=== PATIENT | female | born 1980 | race Caucasian/White ===

== ENCOUNTER 2020-03-05 08:53 | Outpatient (CLI) | payer OTHER, SELFPAY ==
--- NOTE | ~2020-03-05 | MM_ITS ---
EXAMINATION: MM screening [facility] w ricki HISTORY: Screening mammogram TECHNIQUE: Craniocaudal and mediolateral oblique 3-D tomosynthesis images were obtained and synthetic 2-D images were generated. CAD analysis was submitted and interpreted. COMPARISON: Comparison to multiple prior studies sequentially, with oldest reviewed study dated 02/24. BREAST PARENCHYMAL COMPOSITION: The breasts are heterogeneously dense, which may obscure small masses . FINDINGS: There is no evidence of suspicious mass, calcification, or architectural distortion to sugg est malignancy in either breast. There has been no suspicious interval change. IMPRESSION: 1. No mammographic evidence of malignancy. 2. Recommend routine screening mammography in one year. BI-RADS Category 1: Negative Reviewed, dictated and finalized at location A.
== END 2020-03-05 08:54 | disposition home or self-care (01) ==
LOC: ANHIMG 08:55
PROVIDERS: PCP Internal Medicine; Visit Provider Nurse Practitioner
DX: Z12.31 Encounter for screening mammogram for malignant neoplasm of breast (principal)
CPT/HCPCS: 77063; 77067

== ENCOUNTER 2021-03-05 10:09 | Outpatient (CLI) | payer OTHER, SELFPAY ==
--- NOTE | ~2021-03-05 | MM_ITS ---
EXAMINATION: MM screening [facility] w r[facility] HISTORY: Screening TECHNIQUE: Craniocaudal and mediolateral oblique 3-D tomosynthesis images were obtained and synthetic 2-D images were generated. CAD analysis was submitted and interpreted. COMPARISON: Comparison to multiple prior studies sequentially, with oldest reviewed study dated 02/24. BREAST PARENCHYMAL COMPOSITION: The breasts are heterogeneously dense, which may obscure small masses . FINDINGS: There is no evidence of suspicious mass, calcification, or architectural distortion to sugg est malignancy in either breast. There has been no suspicious interval change. IMPRESSION: 1. No mammographic evidence of malignancy. 2. Recommend routine screening mammography in one year. BI-RADS Category 1: Negative Reviewed, dictated and finalized at location A.
== END 2021-03-05 10:10 | disposition home or self-care (01) ==
LOC: ANHIMG 10:12
PROVIDERS: PCP Internal Medicine; Visit Provider Nurse Practitioner
DX: Z12.31 Encounter for screening mammogram for malignant neoplasm of breast (principal)
CPT/HCPCS: 77063; 77067

== ENCOUNTER 2022-04-11 10:21 | Outpatient (CLI) | payer OTHER, SELFPAY ==
--- NOTE | ~2022-04-11 | MM_ITS ---
EXAMINATION: MM screening [facility] [place] BI w ricki HISTORY: Screening TECHNIQUE: Craniocaudal and mediolateral oblique 3-D tomosynthesis images were obtained and synthetic 2-D images were generated. CAD analysis was submitted and interpreted. COMPARISON: Comparison to multiple prior studies sequentially, with oldest reviewed study dated 11/2018. BREAST PARENCHYMAL COMPOSITION: There are scattered areas of fibroglandular density. FINDINGS: There is no evidence of suspicious mass, calcification, or architectural distortion to sugg est malignancy in either breast. There has been no suspicious interval change. IMPRESSION: 1. No mammographic evidence of malignancy. 2. Recommend routine screening mammography in one year. BI-RADS Category 1: Negative Reviewed, dictated and finalized at location A.
== END 2022-04-11 10:22 | disposition home or self-care (01) ==
LOC: ANHIMG 10:22
PROVIDERS: PCP Internal Medicine; Visit Provider Nurse Practitioner
DX: Z12.31 Encounter for screening mammogram for malignant neoplasm of breast (principal)
CPT/HCPCS: 77063; 77067

== ENCOUNTER 2022-12-02 03:00 | Emergency (ER) | payer OTHER, SELFPAY ==
[2022-12-02] VITALS (14 sets, daily range): BP systolic 114–138; BP diastolic 55–95; PULSE 79–202; RESP 10–19; TEMP 37.1; O2SAT 92–100
--- NOTE | ~2022-12-02 | CT_ITS ---
EXAMINATION: CT abdomen pelvis w con DATE: 12/02/2022 07:55 INDICATION: Abdominal pain. TECHNIQUE: Computed tomography (CT) of the abdomen and pelvis was performed with 100 mL Omnipaque 350 intravenous contrast. Automated exposure control and iterative reconstruction technique were employe d. The dose-length product was 540.09 mGy-cm. COMPARISON: CT abdomen and pelvis 10/13/10 FINDINGS: The visualized portions of the lung bases demonstrate mild atelectasis. No pleural effusion . The heart size is normal. No pericardial effusion. There is a small sliding hiatal hernia. The live r is normal. There are changes of cholecystectomy. The spleen, pancreas, adrenal glands, and left kid tatyana are normal. There is a delayed right-sided contrast nephrogram. There is a 5 mm stone in right ki dney. There is asymmetric edema around right kidney. There is mild right hydronephrosis and proximal hydroureter. There is a 4 mm stone in proximal right ureter. There are no dilated loops of bowel. The appendix is normal. There are no pathologically enlarged lymph nodes. There is no free intraperitone al fluid. There is moderate lumbar spondylosis. IMPRESSION: 1. 4 mm stone in proximal right ureter with mild right hydronephrosis and proximal hydroureter. 2. Nonobstructing 5 mm right kidney stone. Reviewed, dictated and finalized at location A. IMPRESSION: 1. 4 mm stone in proximal right ureter with mild right hydronephrosis and proxi mal hydroureter. 2. Nonobstructing 5 mm right kidney stone.
[2022-12-02 03:27] LABS: Basophils Absolute Auto 0.1 K/mm3 (0.0-0.1); Basophils Percent Auto 0.4 % (0.2-1.2); Eosinophils Percent Auto 0.1 % (0-4.4); Hematocrit 39.1 % (37.0-47.0); Hemoglobin 13.3 g/dL (12.0-15.0); Immature Granulocyte Absolute 0.02 K/mm3 (0.00-0.031); Immature Granulocyte Percent A 0.2 % (0-0.5); Lymphocytes Absolute Auto 1.05 K/mm3 (0.9-3.2); Lymphocytes Percent Auto 9.1 % (18.3-44.2); Mean Corpuscular Hemoglobin 30.4 pg (26-34); Mean Corpuscular Volume 89.3 fl (80-100); Mean Platelet Volume 10.7 fl (7.4-10.4); Monocytes Absolute Auto 0.5 K/mm3 (0.1-0.6); Monocytes Percent Auto 4.4 % (2.6-8.5); Neutrophils Absolute Auto 9.9 K/mm3 (1.3-6.7); Neutrophils Percent Auto 85.8 % (45.5-73.1); Platelet Count Result 303 k/mm3 (150-375); Red Blood Count 4.38 M/mm3 (4.2-5.4); Red Cell Distribution Width 13.2 % (11.5-14.5); White Blood Count 11.5 K/mm3 (4.5-10.0)
[2022-12-02 03:36] LABS: Alanine Aminotransferase 18 U/L (6-35); Albumin Level 4.6 g/dL (3.5-5.1); Alkaline Phosphatase 84 U/L (38-126); Anion Gap 11 mmol/L (8-16); Aspartate Amino Transferase 24 U/L (14-36); Bilirubin,Total 0.6 mg/dL (0.2-1.3); Blood Urea Nitrogen 12 mg/dL (7-17); Calcium 9.2 mg/dL (8.4-10.2); Carbon Dioxide 21 mmol/L (22-30); Chloride 106 mmol/L (98-107); Estimated Glomerular Filt Rate > 60; Glucose 171 mg/dL (65-110); Lipase 71 U/L (23-300); Potassium 3.9 mmol/L (3.4-5.0); Sodium 138 mmol/L (137-145)
[2022-12-02 04:04] LABS: Appearance Urine Cloudy (Clear); Bacteria Urine None Seen /hpf; Bilirubin Urine Negative (Negative); Blood Urine 3+ (Negative); Color Urine Yellow (Yellow); Glucose Urine UA Negative (Negative); Ketones Urine 2+ mg/dL (Negative); Leukocyte Esterase Ur Negative LEU/UL (Negative); Nitrate Urine Negative (Negative); Non Pathogenic Casts 0-2; Protein Urine 1+ mg/dL (Negative); RBC Urine >100 /hpf (0-2); Specific Grav Ur 1.019 (1.001-1.035); Squamous Epithelial Cell Urine Few /hpf (Few); Urobilinogen Urine 0.2 mg/dL (<2.0); WBC Urine 0-5 /hpf
[2022-12-02 04:13] LABS: Add Urine Microscopic? YES
--- NOTE | 2022-12-02 07:30 | ED.ABDPAIN ---
HPI - Abdominal Pain General Chief Complaint: Abdominal Pain Stated Complaint: Abdominal Pain Time Seen by Provider: 12/02/22 07:17 Source: patient and family Limitations: no limitations History of Present Illness HPI narrative: 42 years old white female presented to the ED with abdominal pain, radiating to right lower back. At 730 last night associated with a lot of vomiting and a lot of diarrhea. History of cholecystectomy, depression, allergy, endometriosis. Currently her main complaint is right abdominal pain. History of kidney stone. She denies any fever or chills or urinary symptoms. She denies aggravating or relieving factors. Related Data Allergies Allergy/AdvReac Type Severity Reaction Status Date / Time adhesive tape Allergy Severe PAPER Verified 12/02/22 06:05 TAPE= HIVES codeine AdvReac Mild Nausea Verified 12/02/22 07:34 oxycodone AdvReac Mild Hallucinati Verified 12/02/22 07:34 ng Sulfa (Sulfonamide AdvReac Mild Headache Verified 12/02/22 07:34 Antibiotics) Review of Systems Review of Systems: All systems reviewed & are unremarkable except as noted in HPI and below Exam Narrative: General appearance: Well-developed, well-nourished Skin: Normal color Head: Normocephalic, nontraumatic Eyes: Clear conjunctiva ENT: Oropharynx normal, ears normal, nose normal Neck: Supple, nontender Chest and respiratory: Airway patent, no respiratory distress, no accessory muscle use Heart: Regular rate/rhythm Abdomen: Soft, tenderness right flank and right lower abdomen, no organomegaly, quiet bowel sounds Vascular: Normal peripheral pulses, normal capillary refill. Musculoskeletal: Normal range of motion, nontender back Neurologic: Alert and oriented ?3, ZIPPER TRIMMER HAND is normal as tested, no gross motor deficit Course Reevaluation(s) Reevaluation #1: Feeling much better compared to on arrival after IV fluid and Dilaudid/Zofran IV. Date: 12/02/22 Time: 10:11 Vital Signs Vital signs: Vital Signs Temperature 37.1 C 12/02/22 03:02 Pulse Rate 99 12/02/22 03:02 Respiratory Rate 18 12/02/22 03:02 Blood Pressure 130/95 H 12/02/22 03:02 Pulse Oximetry 99 12/02/22 03:02 Temperature 37.1 C 12/02/22 03:02 Pulse Rate 85 12/02/22 10:02 Respiratory Rate 16 12/02/22 10:02 Blood Pressure 123/70 12/02/22 10:02 Pulse Oximetry 100 12/02/22 10:02 MDM - Abdominal Pain MDM Narrative Medical decision making narrative: Patient presents with right abdominal pain Differential diagnosis include urinary tract infection, kidney stone, diverticulitis, constipation. Work-up today showed white count of 11.5 with left shift, normal CMP, hematuria. CT abdomen and pelvis with contrast showed 4 mm stone at the proximal right ureter with mild right hydronephrosis and proximal hydroureter. Patient received 1 L of normal saline, 4 mg of Zofran, 0.5 mg of Dilaudid with good result. Patient preferred to go home to follow-up with urologist as outpatient. Discharge the pt was discharged to home.the pt,s condition upon discharge was fair,education was provided to the pt in reference to the final impression,discharge study results,treatment,prognosis and need for follow up . Differential Diagnosis Differential diagnosis: Likely abdominal pain, calculus of kidney, constipation, diverticulitis, gastroenteritis and small bowel obstruction Lab Data 12/02/22 03:18 12/02/22 03:18 Labs: Lab Results 12/02/22 12/02/22 12/02/22 Range/Units 03:18 03:18 03:29 WBC 11.5 H (4.5-10.0) K/mm3 RBC 4.38 (4.2-5.4) M/mm3 Hgb 13.3 (12.0-15.0) g/dL Hct 39.1 (37.0-47.0) % MCV 89.3 (80-100) fl M
--- NOTE | 2022-12-02 07:52 | PC.NURSE ---
Pt in ct
[2022-12-02] MEDS: ONDANSETRON INJ 4 MG/2 ML VIAL IV PUSH (08:00)
[2022-12-02] MEDS: SODIUM CHLORIDE 0.9% IV 2,000 ML 999 ML IV CONT (08:00)
[2022-12-02] MEDS: HYDROmorphone HCL INJ (*CRX) 1 MG/ML SYR 0.5 MG IV PUSH (08:07)
[2022-12-02] MEDS: TAMSULOSIN HCL 0.4 MG CAPSULE PO (10:55)
[2022-12-02] MEDS: KETOROLAC 30 MG/ML VIAL (*BKC) IV PUSH (11:11)
== END 2022-12-02 11:20 | disposition home or self-care (01) ==
PROVIDERS: Emergency Medicine; Emergency Provider Emergency Medicine; PCP Internal Medicine
DX: N13.2 Hydronephrosis with renal and ureteral calculous obstruction (principal); N80.9 Endometriosis, unspecified; F32.A Depression, unspecified
CPT/HCPCS: 36415; 74177; 80053; 81001; 81025; 83690; 85025; 96361; 96374; 96375; 99284; A9270; J1170; J1885; J2405; J7030; Q9967

== ENCOUNTER 2022-12-04 13:28 | Outpatient (CLI) | payer OTHER, SELFPAY ==
--- NOTE | ~2022-12-04 | XR_ITS ---
EXAMINATION: XR abdomen/kub 1V DATE: 12/04/2022 13:45 INDICATION: Right ureteral stone. TECHNIQUE: A supine view of the abdomen on 2 radiographs was obtained. COMPARISON: CT abdomen and pelvis 12/02/2022 FINDINGS: There are no dilated loops of bowel. There are phleboliths in the pelvis. There is a 5 mm s tone in right kidney. There is a 4 mm stone in proximal right ureter. Surgical clips in the right upp er quadrant are likely from cholecystectomy. IMPRESSION: 1. 4 mm stone in proximal right ureter. 2. 5 mm right kidney stone. Reviewed, dictated and finalized at location A.
== END 2022-12-04 13:29 | disposition home or self-care (01) ==
LOC: ANHIMG 13:30
PROVIDERS: PCP Internal Medicine; Visit Provider Nurse Practitioner Adult Health
DX: N20.2 Calculus of kidney with calculus of ureter (principal)
CPT/HCPCS: 74018

== ENCOUNTER 2022-12-05 02:22 | Day surgery (SDC) | payer OTHER, SELFPAY ==
--- NOTE | 2022-12-04 16:52 | SUR.PREOP ---
Report to the Outpatient Waiting Room, entrance under the green pavilion located off [facility], at time 1030 on date 12/05/22. Planned Procedure Time: 1230. Time changes happen often and if your time is changed the preop area will call you the afternoon before. - You and your visitor will be asked to self-screen and do not enter if you have any COVID symptoms. - Only one visitor is requested with a max of two and NO children visitors are allowed at this time. - The patient visitor may be requested to leave or wait in car when not with patient due to distancing restrictions. - A mask is optional within the hospital at this time. Patients may have clear liquids (water, carbonated beverages, clear teas, apple juice) until 3 hours prior to surgery with a maximum of 20 ounces. - NO CLEAR LIQUIDS AFTER 0930 - No food from midnight until time of surgery - Infants may have breast milk until 4 hours before surgery, formula 6 hours prior to surgery. - Children will be allowed to drink immediately following surgery. If applicable, please bring a bottle or sippy cup to assist with drinking. Juice, water, soda, and popsicles are readily available. For infants on formula, please bring formula the day of surgery. Pacifiers are allowed. Take the following medications with a SIP of water the morning of surgery: PERCOCET, ZOFRAN, FLOMAX DO NOT STOP ANY OF YOUR OTHER PRESCRIPTION MEDICATIONS PRIOR TO SURGERY ?EXCEPT THE FOLLOWING Medications to discontinue per physician N/A Date to take last dose N/A Please no make-up, nail czech, hairspray, perfume, deodorant, or body powder the day of surgery. No jewelry (including any body piercings) or valuables the day of surgery, leave them at home. Please take a shower or bath the night before, or the morning of, surgery with an antibacterial soap. Wear comfortable, loose fitting clothing. Children are encouraged to wear pajamas. - Jewelry must be removed prior to entering the operating room. Rings and piercings that are not removed may be cut off. - The hospital will not accept responsibility for valuables. - Please leave all valuables, including medications, at home the day of surgery. If you are going home after surgery, a licensed truck driver's offsider must drive you home. - NO public transportation without another adult if you receive anesthesia. - We recommend that an adult stay with you for 24 hours following discharge. - We also recommend that you do not drive, make important decision, drink alcoholic beverages, or take any drugs that were not prescribed by your health care provider for at least 24 hours after your discharge time. For Pediatric surgeries, we recommend two adults accompany the child home. Follow any additional instructions given to you from your surgeon. If you or anyone in your household have experienced Covid symptoms in the past week, please notify your surgeon or the nurse liaison at the phone number below for possible testing. Telephone instructions given to SRAVANTHI BALDWIN and asked if any additional questions and then verbalized understanding. Patient advised to call surgeon office or pre surgery nurse liaison [phone] if any additional questions.
[2022-12-04 16:59] VITALS: BMI 27.5
[2022-12-05] VITALS (7 sets, daily range): BP systolic 114–132; BP diastolic 55–61; PULSE 85–101; RESP 10–18; TEMP 37–37.1; O2SAT 97–100
--- NOTE | ~2022-12-05 | XR_ITS ---
XR retrograde pyelo w/stent RT DATE: 12/05/2022 13:50 INDICATION: Right ureteral calculus, mild right hydronephrosis TECHNIQUE: 22.8 seconds fluoroscopy time 0.22595 mGym2 2. Spot C-arm images of the upper abdomen COMPARISON: None FINDINGS: The right ureter is catheterized with retrograde injection of contrast material. Normal carolyn earance of the right renal collecting structures and right renal pelvis. Please refer to urology procedure report. IMPRESSION: Normal-appearing right retrograde pyelogram; please refer to urology procedure report Reviewed, dictated and finalized at Location A. Reviewed, dictated and finalized at location B. IMPRESSION: Normal-appearing right retrograde pyelogram; please refer to urolog y procedure report
--- NOTE | 2022-12-05 10:37 | WPDHPUPDATE1 ---
History and Physical Update Update Date/Time: 12/05/22 10:37 History and Physical has been reviewed, including an updated exam of the patient. There are NO changes in the patient's condition. Risks, benefits, and alternatives have been discussed and questions answered. Patient agrees to proceed with procedure. Proceed with cysto right retrograde pyelogram possible ureteroscopy with stone extraction laser stent placement
[2022-12-05] MEDS: LACTATED RINGERS 1,000 ML 30 ML IV CONT ×2 (11:18→13:50)
[2022-12-05] MEDS: ONDANSETRON INJ 4 MG/2 ML VIAL IV PUSH (11:22)
[2022-12-05] MEDS: fentaNYL CITRATE INJ (*CRX) 100 MCG/2 ML VIAL 25 MCG IV PUSH ×2 (11:28→11:58)
--- NOTE | 2022-12-05 12:20 | P.PNAN_ITS ---
Anes - Initial Pre Proc Eval Procedure: Operation Date: 12/05/22 12:30 Proposed Procedures p Cystoscopy, Right Ureteroscopy, Right Retrograde Pyelogram, Stone Extraction, Possible Right Ureteral Stent Placement, Possible Holmium Laser Lithotripsy - Imer Goldberg MD Date/Time: 12/05/22 12:20 Surgeon: Imer Goldberg MD Pre Op Diagnosis: Right Ureteral Stone Patient Data Age: 42 Gender: F Height: 1.68 m Weight: 80.45 kg Last Vital Signs Temp 98.6 F 12/05/22 11:13 Pulse 101 H 12/05/22 11:13 Resp 16 12/05/22 11:13 BP 124/60 12/05/22 11:13 Pulse Ox 98 12/05/22 11:13 O2 Del Method Room Air 12/05/22 11:13 Allergies Allergy/AdvReac Type Severity Reaction Status Date / Time oxycodone [From OxyContin] Allergy Severe Anaphylaxis Verified 12/05/22 11:07 codeine Allergy Mild Nausea Verified 12/05/22 11:07 Sulfa (Sulfonamide Allergy Mild Headache Verified 12/05/22 11:07 Antibiotics) adhesive tape AdvReac Intermediate REDNESS Verified 12/05/22 11:07 Home Medications Medication Instructions Recorded Confirmed Type ondansetron HCl 4 mg tablet 4 mg PO Q4H 3 doses #10 tabs 12/02/22 12/05/22 Rx oxycodone-acetaminophen 5 mg-325 1 tablet PO Q4H PRN pain #20 tabs 12/02/22 12/05/22 Rx mg tablet (Percocet) tamsulosin 0.4 mg capsule (Flomax) 0.4 mg PO DAILY #10 caps 12/02/22 12/05/22 Rx carisoprodol 350 mg tablet 350 mg PO HS PRN Back Pain 12/04/22 12/05/22 History escitalopram oxalate 10 mg tablet 10 mg PO DAILY 12/04/22 12/05/22 History norethindrone 1 mg-ethinyl 1 tablet PO DAILY 12/04/22 12/05/22 History estradiol 20 mcg (21)-iron 75 mg (7) tablet (Blisovi Fe 09/26 ()) Patient hx anesthesia problems: none Family hx anesthesia problems: none Results Review: All pre-operative results and documents have been reviewed as part of the pre- operative evaluation. [facility] Social History Social History Smoking status: Never smoker Living arrangements: with family Spiritual care concerns: No Anes - Eval Final PreProcedure Day of Procedure 12/05/22 12:20 Patient weight: normal Heart: regular rate and rhythm Lungs: clear to auscultation Airway: Mallampati scale class II Neurological: alert and oriented Last oral intake: >/= 8 hours ASA classification: II Emergent: no Anesthetic plan: proceed Anesthesia type and monitoring: general LMA and standard monitoring Results Review: All pre-operative results and documents have been reviewed as part of the pre- operative evaluation. Informed Consent: The patient's anesthetic plan and its attendant risks and benefits were discussed with the patient/family/POA. Questions were solicited and answers provided to the satisfaction of the patient/family/POA.
[2022-12-05] MEDS: ceFAZolin 2 GM/D5W 50 ML 2 GM/50 ML BAG IVPB (13:16)
--- NOTE | 2022-12-05 13:46 | P.OP_ITS ---
Procedure Note - Detailed Date of Procedure 12/05/22 Pre-op Diagnosis Right Ureteral Stone and renal stone Post-op Diagnosis Same Procedure Performed Cystoscopy, right retrograde, right ureteroscopy with extraction of ureteral and renal calculi, right ureteral stent placement 4.8 Slovenian contour Surgeon Imer Goldberg MD Anesthesia General Description of Procedure Patient is taken the operative suite correctly identified. Once anesthesia was obtained she was placed in dorsal lithotomy position and prepped and draped usual sterile fashion. Twenty-two Slovenian scope was inserted into the bladder. There were no tumors noted. Right ureteral orifice was cannulated with a guidewire. Ureteral access sheath was placed in a mini flexible ureteral scope was placed. The ureteral stone was visualized and grasped with an escape basket sent for analysis. We then went up into the kidney and found the right to the renal calculus. This measured 5 mm. Using escape basket we also retrieved this stone and sent for analysis. Pyelogram was then performed confirm placement of the stent. 4.8 Slovenian contour stent was then placed with the proximal end coiled in the renal pelvis and distal in the bladder. 2% viscous lidocaine was then inserted into the urethra patient is taken recovery stable condition. She will be discharged home and follow up in a week's time for stent removal. Please send a copy of op note to my office Estimated Blood Loss 0 Drains Yes Packing No Pathology Yes Complications No immediate complications Condition Stable Disposition PACU
== END 2022-12-05 15:30 | disposition home or self-care (01) ==
PROVIDERS: PCP Internal Medicine; Visit Provider Urology
PROC: (CPT 52352; principal; 2022-12-05 12:30)
DX: N20.2 Calculus of kidney with calculus of ureter (principal)
CPT/HCPCS: 52332; 52352; 74420; 82365; 88300; C1769; C1894; C2617; J0690; J1100; J2250; J2405; J2704; J3010; J7120

== ENCOUNTER 2023-06-11 07:22 | Outpatient (CLI) | payer OTHER, SELFPAY ==
--- NOTE | ~2023-06-11 | MM_ITS ---
EXAMINATION: MM screening [facility] BI w ricki HISTORY: Screening mammogram TECHNIQUE: Craniocaudal and mediolateral oblique 3-D tomosynthesis images were obtained and synthetic 2-D images were generated. CAD analysis was submitted and interpreted. COMPARISON: 04/11/2022, 03/05/2021, 03/05/2020 BREAST PARENCHYMAL COMPOSITION: There are scattered areas of fibroglandular density. FINDINGS: No suspicious mass, calcification, or architectural distortion are identified in either isaiah ast to suggest malignancy. There has been no suspicious interval change. IMPRESSION: 1. No mammographic evidence of malignancy. 2. Recommend routine screening mammography in one year. BI-RADS Category 1: Negative Reviewed, dictated and finalized at location A.
== END 2023-06-11 07:23 | disposition home or self-care (01) ==
PROVIDERS: PCP Internal Medicine; Visit Provider Nurse Practitioner
DX: Z12.31 Encounter for screening mammogram for malignant neoplasm of breast (principal)
CPT/HCPCS: 77063; 77067

== ENCOUNTER 2023-10-29 06:48 | Day surgery (SDC) | payer OTHER, SELFPAY ==
[2023-09-21 09:04] VITALS: BMI 27.7
[2023-10-09 07:19] VITALS: BMI 27.3
--- NOTE | 2023-10-28 11:35 | WPDANESEPPF ---
Anes - Initial Pre Proc Eval Procedure: Operation Date: 10/29/23 09:00 Proposed Procedures p Screening Colonoscopy - Arsen Crenshaw MD Date/Time: 10/28/23 11:35 Surgeon: Arsen Crenshaw MD Pre Op Diagnosis: Screening Neoplasm of Colon Patient Data Age: 42 Gender: F Height: 1.68 m Weight: 77 kg Allergies Allergy/AdvReac Type Severity Reaction Status Date / Time oxycodone [From OxyContin] Allergy Severe Anaphylaxis Verified 10/29/23 07:50 codeine Allergy Mild Nausea Verified 10/29/23 07:50 Sulfa (Sulfonamide Allergy Mild Headache Verified 10/29/23 07:50 Antibiotics) adhesive tape AdvReac Intermediate REDNESS Verified 10/29/23 07:50 Home Medications Medication Instructions Recorded Confirmed Type carisoprodol 350 mg tablet 350 mg PO HS PRN Back Pain 12/04/22 10/29/23 History escitalopram oxalate 10 mg tablet 10 mg PO DAILY 12/04/22 10/29/23 History norethindrone 1 mg-ethinyl 1 tablet PO DAILY 12/04/22 10/29/23 History estradiol 20 mcg (21)-iron 75 mg (7) tablet (Blisovi Fe 09/26 ()) L.acidop,casei,lactis,rham-B.lact,gi 1 cap PO DAILY 10/09/23 10/29/23 History 625 mg (10 billion cell) capsule (Advanced Probiotic) dicyclomine 10 mg capsule 10 mg PO TID PRN IBS 10/09/23 10/29/23 History melatonin 5 mg capsule 5 mg PO HS PRN Sleep 10/09/23 10/29/23 History Patient hx anesthesia problems: none Family hx anesthesia problems: none Results Review: All pre-operative results and documents have been reviewed as part of the pre-operative evaluation. [facility] Past Medical History Medical History (Updated 10/29/23 @ 07:57 by Arsen Crenshaw MD) Anxiety Fibromyalgia MVP (mitral valve prolapse) Surgical History Surgical History (Updated 10/28/23 @ 11:36 by Matt Schwab DO) History of cholecystectomy Social History Social History Smoking status: Never smoker Alcohol intake: never Substance use: never Substance use type: does not use Living arrangements: with family Gender identity (if verbalized by the patient): Female Sexual Orientation (if Verbalized by the Patient): Straight or Heterosexual Spiritual care concerns: No Anes - Eval Final PreProcedure Day of Procedure 10/28/23 11:35 Patient weight: overweight Heart: regular rate and rhythm Lungs: clear to auscultation Airway: Mallampati scale class II Neurological: alert and oriented Last oral intake: >/= 8 hours ASA classification: II Emergent: no Anesthetic plan: proceed Anesthesia type and monitoring: general GIVS and standard monitoring Results Review: All pre-operative results and documents have been reviewed as part of the pre-operative evaluation. Informed Consent: The patient's anesthetic plan and its attendant risks and benefits were discussed with the patient/family/POA. Questions were solicited and answers provided to the satisfaction of the patient/family/POA.
[2023-10-29 07:45] VITALS: BMI 29.3
[2023-10-29 07:56] VITALS: BP 117/66; PULSE 70; RESP 16; TEMP 37.2; O2SAT 99
--- NOTE | 2023-10-29 07:56 | P.HP_ITS ---
History of Present Illness History of Present Illness Consent: Risks, benefits, and alternatives have been discussed and questions answered. Patient agrees to proceed with procedure. Chief complaint: Screening Neoplasm of Colon Narrative: Nisha Chen is a 42 year old female presents for screening colonoscopy. Patient reports that her current weight appetite and bowel movements are normal. She denies abdominal pain. Patient has had no bleeding. Family history noncontributory. Review of Systems Review of Systems: Review of systems noncontributory. [facility] Past Medical History Medical History (Updated 10/29/23 @ 07:57 by Arsen Crenshaw MD) Anxiety Fibromyalgia MVP (mitral valve prolapse) Surgical History Surgical History (Updated 10/28/23 @ 11:36 by Matt Schwab DO) History of cholecystectomy Social History Social History Smoking status: Never smoker Alcohol intake: never Substance use: never Substance use type: does not use Living arrangements: with family Gender identity (if verbalized by the patient): Female Sexual Orientation (if Verbalized by the Patient): Straight or Heterosexual Spiritual care concerns: No Meds Home Medications and Allergies Home Medications Medication Instructions Recorded Confirmed Type carisoprodol 350 mg tablet 350 mg PO HS PRN Back Pain 12/04/22 10/29/23 History escitalopram oxalate 10 mg tablet 10 mg PO DAILY 12/04/22 10/29/23 History norethindrone 1 mg-ethinyl 1 tablet PO DAILY 12/04/22 10/29/23 History estradiol 20 mcg (21)-iron 75 mg (7) tablet (Blisovi Fe 09/26 ()) L.acidop,casei,lactis,rham-B.lact,gi 1 cap PO DAILY 10/09/23 10/29/23 History 625 mg (10 billion cell) capsule (Advanced Probiotic) dicyclomine 10 mg capsule 10 mg PO TID PRN IBS 10/09/23 10/29/23 History melatonin 5 mg capsule 5 mg PO HS PRN Sleep 10/09/23 10/29/23 History Allergies Allergy/AdvReac Type Severity Reaction Status Date / Time oxycodone [From OxyContin] Allergy Severe Anaphylaxis Verified 10/29/23 07:50 codeine Allergy Mild Nausea Verified 10/29/23 07:50 Sulfa (Sulfonamide Allergy Mild Headache Verified 10/29/23 07:50 Antibiotics) adhesive tape AdvReac Intermediate REDNESS Verified 10/29/23 07:50 Exam Narrative: Physical exam reveals patient to be alert. Vital signs stable. HEENT exam is unremarkable. Patient is anicteric. Lungs are clear to auscultation and percussion. Heart is without murmur extra sounds. Abdomen bowel sounds are present soft nontender with no hepatosplenomegaly. Digital external rectal exam normal. Assessment and Plan Assessment and plan (1) Encounter for screening colonoscopy: Code(s): Z12.11 - Encounter for screening for malignant neoplasm of colon Status: Acute Assessment and Plan: Patient presents today for screening colonoscopy. She is to be at average risk for colon polyps.
[2023-10-29] MEDS: LACTATED RINGERS 1,000 ML 150 ML IV CONT (08:10)
[2023-10-29 09:20] VITALS: BP 127/60; PULSE 68; RESP 16; O2SAT 99
[2023-10-29 09:30] VITALS: BP 103/57; PULSE 72; RESP 16; O2SAT 99
[2023-10-29 09:40] VITALS: BP 108/60; PULSE 74; RESP 16; O2SAT 99
--- NOTE | 2023-10-29 10:12 | WPDANESPN ---
Anes - Prog Note Post-Op Date/Time: 10/29/23 10:12 Cardiovascular status: normal Respiratory status: normal Airway patency: baseline Mental status: baseline Post-Op hydration status: normal Vital Signs: Last Vital Signs Temp 37.2 C 10/29/23 07:56 Pulse 74 10/29/23 09:40 Resp 16 10/29/23 09:40 BP 108/60 10/29/23 09:40 Pulse Ox 99 10/29/23 09:40 O2 Del Method Room Air 10/29/23 09:40 Pain Score (VAS): 0 I/O: Intake & Output 10/28/23 10/29/23 10/29/23 23:59 07:59 15:59 Intake Total 875 Balance 875 Post-procedural complaints: none Patient Feedback: Patient satisfied with anesthetic care. Other Findings: Patient vital signs back to baseline. Patient denies nausea and vomiting. Patient's pain under control. Patient OK for discharge.
== END 2023-10-29 09:50 | disposition home or self-care (01) ==
PROVIDERS: PCP Internal Medicine; Visit Provider Internal Medicine Gastroenterology
PROC: 0DJD8ZZ Inspection of Lower Intestinal Tract, Via Natural or Artificial Opening Endoscopic (ICD-10-PCS; CPT 45378; principal; 2023-10-29 09:00)
DX: Z12.11 Encounter for screening for malignant neoplasm of colon (principal); D12.2 Benign neoplasm of ascending colon; K57.30 Diverticulosis of large intestine without perforation or abscess without bleeding; K64.8 Other hemorrhoids
CPT/HCPCS: 45385

== ENCOUNTER 2023-10-29 08:02 | Outpatient (NON) | payer OTHER, SELFPAY | END 2023-10-29 08:03 | disposition home or self-care (01) | PROVIDERS: PCP Internal Medicine; Visit Provider Internal Medicine Gastroenterology | DX: Z12.11 Encounter for screening for malignant neoplasm of colon (principal) | CPT/HCPCS: 88305 ==

== ENCOUNTER 2024-07-08 07:29 | Outpatient (CLI) | payer BC, SELFPAY ==
--- NOTE | ~2024-07-08 | MM_ITS ---
EXAMINATION: MM screening [facility] BI w ricki HISTORY: Screening mammogram TECHNIQUE: Craniocaudal and mediolateral oblique 3-D tomosynthesis images were obtained and synthetic 2-D images were generated. CAD analysis was submitted and interpreted. COMPARISON: 06/11/2023, 04/11/2022, 03/05/2021, 03/05/2020, 01/07/2019 BREAST PARENCHYMAL COMPOSITION:Not Dense. There are scattered areas of fibroglandular density. FINDINGS: No suspicious mass, calcification, or architectural distortion are identified in either isaiah ast to suggest malignancy. There has been no suspicious interval change. IMPRESSION: No mammographic evidence of malignancy. Recommend routine screening mammography in one year. BI-RADS Category 1: Negative Reviewed, dictated and finalized at location .
== END 2024-07-08 07:30 | disposition home or self-care (01) ==
LOC: ANHIMG 07:34
PROVIDERS: PCP Internal Medicine; Visit Provider Nurse Practitioner
DX: Z12.31 Encounter for screening mammogram for malignant neoplasm of breast (principal)
CPT/HCPCS: 77063; 77067

== ENCOUNTER 2025-01-17 13:44 | Emergency (ER) | payer OTHER, SELFPAY ==
--- NOTE | ~2025-01-17 | XR_ITS ---
XR foot RT min 3V Ordering provider: Samanta Mcguire APRN History: . dorsal pain after fall in garage this A.M. . Comparison: None. FINDINGS: BONES: No acute fracture or dislocation. Sclerotic area in the talus bone. Follow-up advised. JOINT SPACES: Normal. No tarsal coalition. SOFT TISSUES: Normal. Calcaneal spur. IMPRESSION: No acute osseous abnormality of the right foot. Reviewed, dictated and finalized at location A.
--- NOTE | 2025-01-17 13:58 | ED_ITS ---
HPI - Extremity Injury (Lower) General Chief Complaint: Extremity Injury, Lower Stated Complaint: RT Foot Pain Time Seen by Provider: 01/17/25 13:58 Source: patient, RN notes reviewed and old records reviewed Mode of arrival: ambulatory Limitations: no limitations History of Present Illness HPI Narrative: 44-year-old female presents to the [facility] with right dorsal foot pain. States that she was walking down steps and unsure how she twisted, felt a popping sensation approximately a.m. this morning. Has taken ibuprofen and been applying ice. Has had increased swelling that she was not able to wear her sneakers. Was originally wearing Sneakers denies any back pain. denies hitting head. No loss of consciousness. Treatments prior to arrival: cold therapy and NSAIDS Related Data Home Medications ?Medication ?Instructions ?Recorded ?Confirmed ?Last Taken ?Type escitalopram oxalate 10 mg tablet 10 mg PO DAILY 12/04/22 10/29/23 10/28/23 18:00 History norethindrone 1 mg-ethinyl 1 tablet PO DAILY 12/04/22 10/29/23 10/28/23 21:00 History estradiol 20 mcg (21)-iron 75 mg (7) tablet (Blisovi Fe 09/26 ()) L.acidop,casei,lactis,rham-B.lact,gi 1 cap PO DAILY 10/09/23 10/29/23 10/27/23 09:00 History 625 mg (10 billion cell) capsule (Advanced Probiotic) Allergies Allergy/AdvReac Type Severity Reaction Status Date / Time oxycodone (From OxyContin) Allergy Severe Anaphylaxis Verified 01/17/25 14:10 codeine Allergy Mild Nausea Verified 01/17/25 14:10 Sulfa (Sulfonamide Allergy Mild Headache Verified 01/17/25 14:10 Antibiotics) adhesive tape AdvReac Intermediate REDNESS Verified 01/17/25 14:10 Review of Systems Review of Systems: All systems reviewed & are unremarkable except as noted in HPI and below Constitutional: Constitutional: Reports no additional constitutional complaints ENT: Reports system reviewed and no additional complaints, except as documented Cardiovascular: Cardiovascular: Reports no additional cardiovascular complaints, Denies chest pain and Denies dyspnea Respiratory: Respiratory: Reports no additional respiratory complaints, Denies chest congestion, Denies cough and Denies dyspnea Musculoskeletal: Musculoskeletal: Reports as per HPI Integumentary/Breasts: Skin/Breast: Reports system reviewed and no additional complaints, except as docu [facility] Past Medical History Medical History Anxiety Fibromyalgia MVP (mitral valve prolapse) Surgical History Surgical History History of cholecystectomy Social History Social History Smoking status: Never smoker Alcohol intake: never Substance use: never Substance use type: does not use Living arrangements: with family Gender identity (if verbalized by the patient): Female Sexual Orientation (if Verbalized by the Patient): Straight or Heterosexual Spiritual care concerns: No Comments At the time of my signature, I reviewed and agree with the nursing past medical, surgical, social, and family history. There is no relevant family history pertinent to the patient complaint. Exam Const: General: cooperative, healthy appearing, comfortable, no acute distress, well developed, alert and well nourished Nutritional Appearance: well nourished Orientation/consciousness: patient oriented x3 Limitations: no limitations HENMT: Head: normal to inspection Eyes: General: appearance normal, both eyes and all related structures Alignment and Position: alignment normal Neck: Neck: normal visual inspection, full ROM, no lymphadenopathy and no meningeal signs Chest: Chest palpation & inspection: normal inspection of the chest Resp: Effort & Inspection: normal respiratory effort and able to speak in complete sentences Auscultation: clear to auscultation bilaterally, no crackles, no rales, no rhonchi and no wheezes Cardio: Rate: regular rate Skin: General skin exam: normal color and no rashes or lesions noted Wounds: no wounds Neuro: General: patient oriented x3, moves all extremities and no meningeal signs Cognition (Neuro): normal cognition Speech: normal speech Extrem: General: normal to inspection, full ROM, capillary refill normal and Limp noted Right lower extremity: knee Details: normal to inspection, lower leg Details: normal to inspection, ankle Details: normal to inspection and foot Details: normal capillary refill, tenderness, toes with normal ROM, vascular exam Details: dorsalis pedis pulse present and normal capillary refill and motor-sensory exam Details: light-touch normal; no ecchymosis and no puncture wound Psych: Appearance: grossly normal and well kempt Mental Status: mental status grossly normal Speech and movement: Normal speech and movement present and Clear speech present Affect: normal affect Attitude: cooperative Course Course Level of Care: Express Care Visit Vital Signs Vital signs: Vital Signs Temperature 98.4 F 01/17/25 14:00 Pulse Rate 94 01/17/25 14:00 Respiratory Rate 18 01/17/25 14:00 Blood Pressure 121/65 01/17/25 14:00 Pulse Oximetry 100 01/17/25 14:00 Oxygen Delivery Room Air 01/17/25 14:00 Temperature 98.4 F 01/17/25 14:00 Pulse Rate 94 01/17/25 14:00 Respiratory Rate 18 01/17/25 14:00 Blood Pressure 121/65 01/17/25 14:00 Pulse Oximetry 100 01/17/25 14:00 Oxygen Delivery Room Air 01/17/25 14:00 Reviewed MDM - Extremity Injury (Lower) MDM Narrative Medical decision making narrative: patient sitting in exam room. Nontoxic, vitals stable. Patient presents with right foot pain. X-ray negative for fracture. Patient appropriate for outpatient treatment with close follow-up Discharge instructions reviewed with patient, as well as provided in writing per nursing staff. The instructions also include specific and strict return/GO TO THE ER as well as f/u information. All questions have been answered, and the patient deny any further questions with discharge and discharge plan. Some parts of this dictation were generated by voice recognition software and may contain typographical and/or grammatical inaccuracies. Differential Diagnosis Differential diagnosis: Likely ankle fracture and other (Foot fracture, foot contusion, foot sprain) Imaging Data Radiologist's impression: XR foot RT min 3V Ordering provider: Samanta Mcguire APRN History: . dorsal pain after fall in garage this A.M. . Comparison: None. FINDINGS: BONES: No acute fracture or dislocation. Sclerotic area in the talus bone. Follow-up advised. JOINT SPACES: Normal. No tarsal coalition. SOFT TISSUES: Normal. Calcaneal spur. IMPRESSION: No acute osseous abnormality of the right foot. Critical Care Time Critical Care Time Critical Care Time: No Discharge Plan Discharge Clinical Impression: Right foot sprain Qualifiers: Encounter type: initial encounter Qualified Code(s): S93.601A - Unspecified sprain of right foot, initial encounter Patient Disposition: Home Condition: Stable Instructions: Antibiotic Form, Foot Sprain (ED) Additional Instructions: Your Xray did not show a fracture. Wear good supportive shoes at all times. Ice should be applied to help reduce swelling. It can be used for 20 to 30 minutes, every 2-3 hours while awake. Do not apply ice directly to your skin. You can alternate ibuprofen 600mg and Tylenol 650mg every 4 hours as needed for pain Please schedule a follow-up visit with your personal physician for further evaluation and treatment within 2 weeks especially if symptoms persist. For new or worsening symptoms go directly to the emergency room Patient Language: [place] Prescriptions: No Action norethindrone-e.estradiol-iron [Blisovi Fe 09/26 (28)] 1 mg-20 mcg (21)/75 mg (7) tablet 1 tablet PO DAILY escitalopram oxalate 10 mg tablet 10 mg PO DAILY Advanced Probiotic 625 mg (10 billion cell) Capsule 1 cap PO DAILY Follow-up/Referrals: Semaj,Leah Zimmerman MD [Primary Care Provider] - 1 Week ( [facility] follow- up) Stand Alone Forms: Work/School Release IP Time of Disposition: 14:22
--- OUTSIDE RECORDS SUMMARY | 2025-01-17 13:59 | XMS_ITS | Clinical Summary ---
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 Role Phone Unavailable Primary Care Provider Unavailabl e Social History Tobacco Use Types Packs/Day Years Used Date Smoking Tobacco: Never Assessed Comments Unknown Sex and Gender Information Value Date Recorded Sex Assigned at Not on file Legal Sex Female 7:36 PM CDT Gender Identity Not on file Sexual Orientation Not on file Plan of Treatment Health Maintenance Due Date Last Done Comments Cervical Cancer Screening Pa p Smear (Age 30 to 64) Every 3 Years 1978 Colorectal Cancer Screening Colonoscopy (10 Years) 1978 Annual Physical 1981 Hepatitis C 1996 DTaP, Tdap and Td Vaccines ( 1 - Tdap) 1997 Hepatitis B Vaccines (1 of 3 - 19+ 3-dose series) 1997 Cervical Cancer Screening Pa p with HPV Testing (Age 30 to 64) Every 5 Years 2008 Cervical Cancer Screening with HPV 2008 Mammogram Screening 2018 COVID-19 Vaccine (2023-2 5 season) 2024 Meningococcal B Vaccine Aged Out No l onger eligible based on patient's age to complete this topic Meningococcal Vaccine Aged Out No gi vashti eligible based on patient's age to complete this topic Pneumococcal Vaccine: Pediat rics (0 to 5 Years) and At-Risk Patients (6 to 49 Years) Aged Out No longer eligible b ased on patient's age to complete this topic RSV Immunizations Under 20 Months Aged Out No longer eligible based on patient's age to complete this topic
[2025-01-17 14:00] VITALS: BP 121/65; PULSE 94; RESP 18; TEMP 36.9; O2SAT 100
== END 2025-01-17 14:38 | disposition home or self-care (01) ==
PROVIDERS: Emergency Provider Nurse Practitioner; PCP Internal Medicine
DX: S93.601A Unspecified sprain of right foot, initial encounter (principal); X50.9XXA Other and unspecified overexertion or strenuous movements or postures, initial encounter; M79.7 Fibromyalgia; I34.1 Nonrheumatic mitral (valve) prolapse; F41.9 Anxiety disorder, unspecified
CPT/HCPCS: 73630; 99213; G0463

== ENCOUNTER 2025-07-19 14:46 | Outpatient (CLI) | payer OTHER, SELFPAY ==
--- NOTE | ~2025-07-19 | MM_ITS ---
EXAMINATION: MM screening [facility] BI w ricki HISTORY: Screening TECHNIQUE: Craniocaudal and mediolateral oblique 3-D tomosynthesis images were obtained and synthetic 2-D images were generated. CAD analysis was submitted and interpreted. COMPARISON: Comparison to multiple prior studies sequentially, with oldest reviewed study dated 01/07/2019. BREAST PARENCHYMAL COMPOSITION: Not dense: There are scattered areas of fibroglandular density. FINDINGS: There is no evidence of suspicious mass, calcification, or architectural distortion to suggest malignancy in either breast. There has been no suspicious interval change. IMPRESSION: 1. No mammographic evidence of malignancy. 2. Recommend routine screening mammography in one year. BI-RADS Category 1: Negative Reviewed, dictated and finalized at location B. 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
--- OUTSIDE RECORDS SUMMARY | 2025-07-19 15:41 | XMS_ITS | Patient Health Record ---
Author Organization [facility] Address [address] [place] [address] Care Team Providers Care Forepart Reducer Name Role Phone Leah Cha MD Primary Care Provider Dez Larsen Unavailable [phone] Terry Billings MD Unavailable Unavailable Allergies Allergen (clinical drug ingredient) Drug/Non Drug Allergy documented on EMR Reaction Allergy Type Onset Date Status oxycodone OxyContin Unknown Drug Allergy Active Sulfa Unknown Drug Allergy Active Reason For Referral No Information Medications Medication SIG (Take, Route, Frequency, Duration) Notes Start Date End Date Status Soma Active Advil Active Social History Tobacco Use: Social History Observation Description Date Details (start date - stop date) Never Smoker NA - NA Tobacco Use/Smoking Question Answer Notes Are you a nonsmoker Problems Problem Type SNOMED Code ICD Code Onset Dates Problem Status W/U Status Risk Notes Problem Displacement of lumbar intervertebral disc without myelopathy (99849251) Other intervertebral disc displacement, lumbar region (M51.26) Active confirmed Problem Lumbar radiculopathy (443099286) Radiculopathy, lumbar region (M54.16) Active confirmed Problem Lumbosacral radiculopathy (8972799) Radiculopathy, lumbosacral region (M54.17) Active confirmed Plan Of Treatment No Information Insurance Providers Payer Name Payer Address Payer Phone Subscriber Number Group Number Insured Name Patient Relationship to Insured Coverage Start Date Coverage End Date [facility] [address] [place] [address] [id number] Nisha Chen Self - patient is the insured Medical (General) History Medical History History ICD Code irritable bowel syndrome Surgical History Surgery Date(Month/Year) Gall bladder 2010 endoscope for endometriosis 2002 endoscope for endometriosis 2006
--- OUTSIDE RECORDS SUMMARY | 2025-07-19 15:41 | XMS_ITS | Clinical Summary ---
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
== END 2025-07-19 14:47 | disposition home or self-care (01) ==
LOC: ANHFOHIMG 14:49
PROVIDERS: PCP Internal Medicine; Visit Provider Nurse Practitioner
DX: Z12.31 Encounter for screening mammogram for malignant neoplasm of breast (principal)
CPT/HCPCS: 77063; 77067